=== PATIENT | female | born 1975 | race Two or more races ===

== ENCOUNTER → 2020-06-02 | Outpatient (CLI) | payer OTHER ==
[~2020-06-02] VITALS: Ht 149.9 cm; Wt 63.5 kg
[~2020-06-02] MED LIST: FLONASE16 GM; GAS-X125 MG; LEVAQUIN750 MG; PEPCID AC10 MG; PROAIR HFA8.5 GM
== END | disposition home or self-care (01) ==
LOC: OFIC 805 10:00
PROVIDERS: ATTEND Otolaryngology Otology & Neurotology
DX: H69.93 Unspecified Eustachian tube disorder, bilateral (principal); J30.89 Other allergic rhinitis; H92.03 Otalgia, bilateral

== ENCOUNTER 2020-07-19 14:34 | Outpatient (CLI) | payer OTHER | END 2020-07-19 16:00 | disposition home or self-care (01) | LOC: OFIC 805 14:34 | PROVIDERS: ATTEND Otolaryngology Otology & Neurotology | DX: J30.89 Other allergic rhinitis (principal); H92.02 Otalgia, left ear; H69.92 Unspecified Eustachian tube disorder, left ear ==